=== PATIENT | female | born 1985 | race Caucasian/White ===

== ENCOUNTER 2019-11-04 00:56 | Inpatient (IN) | payer BC ==
[2019-11-04 01:19] LABS: #Basophils 0.1 thou/uL (0.0-0.2); #Eosinphils 0.2 thou/uL (0.0-0.7); #Lymphocytes 2.5 thou/uL (1.20-3.40); #Monocytes 0.7 thou/uL (0.11-0.59); #Neutrophils 9.5 thou/uL (1.40-6.50); %Basophils 0.4 % (0.0-1.0); %Eosinophils 1.2 % (0.0-10.0); %Lymphocytes 19.2 % (21.0-51.0); %Monocytes 5.8 % (0.0-10.0); %Neutrophils 73.4 % (42.0-75.0); Hemoglobin 13.4 g/dL (12.0-16.0); Mean Corpuscular HGB CONC 34.3 g/dL (32.0-36.0); Mean Corpuscular Hemoglobin 34.1 pg (27.0-31.0); Mean Corpuscular Volume 99.4 fL (78.0-98.0); Mean Platelet Volume 8.1 fL (7.4-10.4); Platelet Count 203 thou/uL (130-400); RBC Distribution Width 11.2 % (11.5-14.5); Red Blood Cell (RBC) Count 3.92 mill/uL (4.20-5.40); White Blood Cell (WBC) Count 12.9 thou/uL (4.8-10.8)
[2019-11-04 01:42] LABS: ALT (SGPT) 17 U/L (8-55); AST (SGOT) 23 U/L (5-34); Albumin 4.2 g/dL (3.5-5.0); Alkaline Phosphatase 53 U/L (40-110); Anion Gap 14 mmol/L (10-20); BUN (Urea Nitrogen) 12 mg/dL (7.0-18.7); Bilirubin, Total Less than 0.2 mg/dL (0.2-1.2); Calc. Creatinine Clearance 0 mL/min (70-130); Calcium 9.8 mg/dL (7.8-10.44); Carbon Dioxide 27 mmol/L (22-29); Chloride 105 mmol/L (98-107); Estimated GFR-MDRD 85; Globulin 2.5 g/dL (2.4-3.5); Glucose 102 mg/dL (70-105); Protein, Total 6.7 g/dL (6.0-8.3); Sodium 142 mmol/L (136-145)
[2019-11-04 02:22] LABS: Bilirubin Negative (Negative); Blood, Urine Negative (Negative); Clarity Clear (Clear); Glucose, Urine (Dipstick) Normal (Negative); Leukocyte Negative Leu/uL (Negative); Nitrite Negative (Negative); Protein, Urine (Dipstick) Negative (Neg-Trace); Urobilinogen Normal mg/dL (Less than 2)
[2019-11-04 02:24] LABS: Pregnancy Test - Urine (BHCG) Negative (Negative); Pregu Control Background? CLEAR/WHITE (CLR/WHITE); Pregu Control Bar Appear? YES (CONTROL BAR); Specific Gravity 1.022 (1.002-1.036)
[2019-11-04] MEDS ORDERED: Morphine 4 MG/ML VIAL ONE (03:23)
[2019-11-04] MEDS ORDERED: Ondansetron PF 4 MG/2 ML Vial ONE (03:23)
[2019-11-04 06:14] VITALS: BMI 19.7
[2019-11-04] MEDS ORDERED: FLU VACC QS2019-20(6MOS UP)/PF 60 MCG/0.5 ML SYRINGE IM ONE (06:45)
--- NOTE | 2019-11-04 07:46 | CT ---
PRELIMINARY REPORT/[facility]/EMERGENCY AFTER HOURS PROCEDURE: Receipt of this report by the clinical staff was confirmed with Joselin Brannon MD by Angeline Springer on Nov 04, 2019 04:09:00 CDT. Addendum electronically signed by Ambreen Springer on November 04, 2019 4:09:27 AM CDT History: Abdominal pain, nausea, vomiting and diarrhea. CT abdomen pelvis with 100 cc Isovue-370 IV contrast. Comparison: None. Findings: The lung bases are clear. Elongated right hepatic lobe. The gallbladder, pancreas, spleen, adrenal glands and kidneys are unre markable. The stomach and proximal small bowel are unremarkable. However, the mid small bowel is fluid-filled and mildly dilated. Scattered air fluid levels. Focal fecalization a transition point in the right pelvis within the distal ileum. Mural thickening of the collapsed distal ileum. The appendix is nor mal. The colon is relatively decompressed. Small amount of free fluid in the pelvis. No free air. Retroflexed uterus. Thickening of the endometrial complex. The bladder is collapsed. The aorta is intact. Mild scoliosis. Dominant superior endplate Schmorl's node at L1. No other acute bony findi ngs. Impression: Findings consistent with distal small bowel obstruction transition point in the right pel vis in the distal ileum. Focal inflammatory changes at the transition point suggest focal enteritis as a possible cause of the obstruction. ELECTRONICALLY SIGNED BY: Keshawn Hoff MD Nov 04, 2019 4:04:37 AM CDT This report is intended for review by the ordering physician only, in accordance of law. If you recei ve this report in error, please call [facility] at [phone]. FINAL REPORT EMERGECNY AFTER HOURS CT ABDOMEN AND PELVIS WITH CONTRAST: FINDINGS/IMPRESSION: I agree with the findings and impression given in the preliminary report per [facility] physici an. There is distention of small bowel loops with a transition point in the distal ileum and the midline of the pelvis. There is a small bowel feces sign. This may be secondary to a complete or partial smal l bowel obstruction.
[2019-11-04] MEDS ORDERED: Morphine 2 MG/ML SYRINGE SLOW IVP PRN (08:27)
[2019-11-04] MEDS ORDERED: Morphine 2 MG/ML SYRINGE SLOW IVP SCH (08:30)
[2019-11-04] MEDS ORDERED: Ondansetron ODT 4 MG TAB PO PRN (09:00)
[2019-11-04] MEDS ORDERED: Acetaminophen 650 MG Suppository PR PRN (09:00)
[2019-11-04] MEDS ORDERED: Acetaminophen 325 MG TAB PO PRN (09:00)
[2019-11-04] MEDS ORDERED: Calcium Carbonate 500 MG ChewTAB PO PRN (09:01)
[2019-11-04] MEDS ORDERED: Cepastat Lozenges 1 LOZ PO PRN (09:01)
[2019-11-04] MEDS ORDERED: Mag-Al 1200 mg/1200 mg/30 ML UDCUP PO PRN (09:01)
--- NOTE | 2019-11-04 09:44 | HP ---
PRIMARY CARE PHYSICIAN: Dr. Marilee Rodriguez. CHIEF COMPLAINT: Abdominal pain with nausea and vomiting of one day duration. HISTORY OF PRESENT ILLNESS: The patient is a 34-year-old female with no previous abdominal surgeries, presented to the emergency room with above complaints. The abdominal pain started over the last 24 hours. It got worse around 8 p.m. She had nausea and vomiting along with one episode of loose bowel movement. She did not have any more bowel movement since then. She vomited several time. The vomitus was yellowish, nonbilious. The abdominal pain was mainly localized in the right lower quadrant and the periumbilical area. It was constant with waxing and waning. She denies any aggravating or relieving factor. Sometimes, the pain got worse with walking. She denies any other family member with similar symptoms. She ate [employer] as well as some leftover food yesterday afternoon. She tried some Flexeril at home without much relief. No fever, chills, chest pain, palpitations, dysuria, hematuria, urgency, or vaginal discharge reported. In the emergency room, initial vital signs showed temperature 98.4, pulse of 81, respirations 17, with blood pressure of 148/77. She received Zofran and morphine with IV fluids in the emergency room. CT scan of the abdomen and pelvis was consistent with distention of the small bowel loops with transition point in the distal ileum and midline of the pelvis. There was small-bowel feces sign. This could be complete or partial small-bowel obstruction. PAST MEDICAL HISTORY: Reviewed with the patient and none. PAST SURGICAL HISTORY: Reviewed with the patient and none. ALLERGIES: CODEINE. CURRENT HOME MEDICATION: control. SOCIAL HISTORY: The patient has a history of tobacco vaping. She denies any other drug abuse. FAMILY HISTORY: Positive for diabetes in her father and heart disease in her mother. REVIEW OF SYSTEMS: All other review of systems was reviewed and was found negative. PHYSICAL EXAMINATION: VITAL SIGNS: As discussed above. GENERAL: A 34-year-old female, in [id number] distress due to abdominal cramping. HEENT: Head, atraumatic and normocephalic. Sclerae anicteric. Moist mucous membranes. No oral lesion. NECK: Supple. No JVD. No carotid bruit. LUNGS: Clear to auscultation bilaterally. No wheezing, rales, or rhonchi. HEART: S1 and S2 present. Regular rate and rhythm. No rubs or gallops. ABDOMEN: Soft. There is tenderness in the right lower quadrant with voluntary guarding. The abdomen was soft. Bowel sounds were somewhat hyperactive. There was no rebound or guarding. No costovertebral angle tenderness. EXTREMITIES: No edema or calf tenderness. NEUROLOGIC: Grossly nonfocal. Moves all 4 extremities. PSYCHIATRIC: Alert, awake, and oriented x3. SKIN: Warm and dry. LYMPH NODES: No palpable lymph nodes in the neck. PERIPHERAL VASCULAR: Radial pulses palpable bilaterally. MUSCULOSKELETAL: No joint swelling or tenderness. LABORATORY FINDINGS: CBC showed WBC 12.9 with hemoglobin 13.4, hematocrit 39, and platelets of 203. Chemistry showed sodium 142, potassium 4, chloride 105, bicarb 27, BUN 12, creatinine 0.7. Lipase was 27. Urinalysis was negative for wbc and bacteria. Urine negative. CT scan of the abdomen and pelvis by my review as discussed above. IMPRESSION: 1. Nausea and vomiting along with abdominal discomfort. Symptoms are probably due to suspected small-bowel obstruction. 2. One episode of loose bowel movement yesterday. Rule out infectious gastroenteritis. 3. Acute pain secondary to #1. 4. Chronic kidney disease, stage 2. 5. Codeine allergy. 6. Leukocytosis. PLAN: The patient will be monitored on the surgical floor. We will continue IV hydration. Pain control with IV morphine. Consult General Surgery, Dr. Walsh. Hold NG tube for now. She did not have any episode of vomiting since last night. We will keep her n.p.o. Vital signs per protocol. Strict input and output. Monitor electrolytes. We will send stool studies. She denies any recent antibiotic use. The patient understands the above plan of care. The patient will require 2 to 3 days for stabilization. Job ID: [id number]
[2019-11-04] MEDS ORDERED: Sodium Chloride 0.9% (PF) 10 ML VIAL FS PRN (09:59)
[2019-11-04] MEDS: Pantoprazole 40 MG VIAL IVP SCH ×2 (10:05→20:06)
[2019-11-04] MEDS: D5 1/2 NS w/20 mEq KCL 1,000 ML IV SCH ×3 (10:05→20:06)
[2019-11-04] MEDS ORDERED: Iopamidol 370 76% 100 ML VIAL ONE (14:38)
[2019-11-04] MEDS ORDERED: MD-Gastroview 120 ML BOT ONE (14:54)
[2019-11-04] MEDS: Ondansetron PF 4 MG/2 ML Vial IVP PRN (16:37)
--- NOTE | 2019-11-04 17:10 | CON ---
DATE OF CONSULTATION: 11/04/2019 CHIEF COMPLAINT: Abdominal pain, nausea, and vomiting. HISTORY OF PRESENT ILLNESS: Ms. Gomez is a 34-year-old woman, who has had intermittent episodes of lower abdominal pain since over the last 14 years. These pain episodes occurred for a couple of days per year. She also has episodes of diarrhea few days per week, only 1 or 2 episodes per day. Yesterday evening around 8 p.m., she developed more acute onset lower abdominal stabbing pain that then became more of a tightness and radiated toward her right lower quadrant from her periumbilical area. The pain lasted for several hours, which is longer than it usually lasts. Usually, she can take Flexeril and her pain improves, but this did not help last night. She went on the emergency room, and on the way, started vomiting. She had multiple episodes of vomiting in the emergency room as well. She has had no blood with the stool. No bloody emesis. She had a CT scan performed in the emergency room, which showed an area of fecalization and inflammation in the distal ileum. There was dilation of the bowel proximal to that. She states that she has gained 20 pounds over the last year. PAST MEDICAL HISTORY: Arnold-Chiari malformation. PAST SURGICAL HISTORY: Negative. FAMILY HISTORY: Negative for GI malignancy or inflammatory bowel disease. SOCIAL HISTORY: She previously smoked a pack every couple of days. She changed to vaping a couple of years ago. No alcohol. No drugs. ALLERGIES: CODEINE. MEDICATIONS: Prior to admission, control. She takes ibuprofen 600 mg maybe once per week to once every couple of weeks for headaches. REVIEW OF SYSTEMS: Negative x10 systems reviewed except as stated in history of present illness. PHYSICAL EXAMINATION: VITAL SIGNS: Temperature 98.1, pulse 70, blood pressure 112/69. GENERAL: She is in no acute distress, alert and oriented x3. HEENT: Eyes, no scleral icterus. Oropharynx is clear without lesions. No cervical or supraclavicular lymphadenopathy. LUNGS: Clear to auscultation bilaterally. HEART: Regular rate and rhythm without murmur. ABDOMEN: Soft, nontender, nondistended. Bowel sounds are present. EXTREMITIES: No lower extremity edema. Cranial nerves are grossly intact. LABORATORY DATA: Creatinine 0.77, bilirubin 0.2, AST 23, ALT 17, alkaline phosphatase 53, albumin 4.2, lipase 27. White blood cell count 12.9, hemoglobin 13.4, platelets 203. IMPRESSION: 1. Partial small bowel obstruction, appears to be resolving clinically. She is passing gas from her rectum down. Her abdomen is less distended. She is having no further vomiting. 2. Abnormal CT scan of the abdomen showing thickening of the terminal ileum. She does have diarrhea couple of times per week at baseline and has had intermittent episodes of lower abdominal pain once or twice per year for the last 14 years, then she delivered her baby. She could have inflammatory bowel disease associated with this. The other possibility could be an acute infectious gastroenteritis or less likely would be an ischemic etiology. She has had no prior abdominal surgeries to indicate adhesions causing obstruction in this area. RECOMMENDATIONS: 1. Small-bowel follow-through this afternoon. If that is clear, then we can give a bowel prep tomorrow and then colonoscopy the next day. 2. Clear liquids after the small-bowel follow-through. If the small-bowel follow-through reveals no transition of the contrast through the bowel, then the NG tube could be placed. Job ID: [id number]
--- NOTE | 2019-11-04 17:57 | RAD ---
GASTROGRAFIN SMALL BOWEL EXAM 11/04/19 INDICATIONS: Partial small bowel obstruction versus ileus. FINDINGS: Abrasive Band Winder view shows scattered stool and gas in the colon. Scattered small bowel gas is seen without dila tation. Patient was given gastrografin orally. 30 minute and 45 minute films were obtained. Small bowel opacifies and reaches the colon within 30 minutes. There was no dilatation. No evidence o f small bowel obstruction. IMPRESSION: Unremarkable gastrografin small bowel exam. POS: KEV
[2019-11-04] MEDS ORDERED: GoLYTELY 4,000 ml Bottle PO SCH (18:15)
--- NOTE | 2019-11-04 18:26 | CON ---
DATE OF CONSULTATION: 11/04/2019 CHIEF COMPLAINT: Nausea, vomiting, and diarrhea. HISTORY OF PRESENT ILLNESS: This is a 34-year-old female, who presents with a history of chronic intermittent lower abdominal pain, never as severe as last night. Last night, she had sharp pain in the right lower quadrant. This was associated with severe nausea and bloating. She vomited a few times. She had been having diarrhea for a few days. Denies history of inflammatory bowel disease or Crohn disease. Denies history of a bloody diarrhea. She is feeling better today and has not vomited since admission. PAST MEDICAL HISTORY: She denies. PAST SURGICAL HISTORY: She denies. MEDICATIONS: Medicines taken daily none. ALLERGIES: HYDROCODONE. SOCIAL HISTORY: No smoking, alcohol, or other drugs. REVIEW OF SYSTEMS: Ten-system review of systems is otherwise negative unless described above. PHYSICAL EXAMINATION: HEENT: Sclerae are anicteric. Oropharynx clear. NECK: No lymphadenopathy. CHEST: Clear. HEART: Regular rate. ABDOMEN: Soft, mildly tender diffusely, more in the right lower quadrant without guarding or rebound. EXTREMITIES: No ischemia or edema to extremities. LABORATORY DATA: CT scan as above. ASSESSMENT: Enteritis associated with ileus versus small bowel obstruction of uncertain etiology. PLAN: I recommend a GI consult as well. This could represent a chronic enteritis or inflammatory bowel disease picture. We will defer to them for that. I doubt she is going to need surgical intervention and she already feels better from an obstruction standpoint. We will follow with you. Job ID: [id number]
[2019-11-04 18:48] LABS: HBSAg Index 0.18 S/CO (0-0.99); HIV (1/2) Antibody/Antigen Non-Reactive (NonReactive); HIV 1/2 INDEX 0.17 S/CO (<1.00); Hep B Surf Ag Non-Reactive S/CO (NonReactive); Hep C IgG Ab Non-Reactive (NonReactive); Hep C Index 0.07 S/CO (0-0.79)
[2019-11-04 19:05] LABS: HBSAB Concentration 48.62 mIU/mL; Hep B Surf AB Reactive (NonReactive)
[2019-11-05] MEDS: Ondansetron PF 4 MG/2 ML Vial IVP PRN (00:03)
[2019-11-05 05:38] LABS: #Lymphocytes 1.3 thou/uL (1.20-3.40); #Monocytes 0.5 thou/uL (0.11-0.59); #Neutrophils 2.5 thou/uL (1.40-6.50); %Basophils 0.2 % (0.0-1.0); %Eosinophils 0.9 % (0.0-10.0); %Lymphocytes 30.8 % (21.0-51.0); %Monocytes 11.9 % (0.0-10.0); %Neutrophils 56.3 % (42.0-75.0); Mean Corpuscular HGB CONC 35.1 g/dL (32.0-36.0); Mean Corpuscular Hemoglobin 34.7 pg (27.0-31.0); Mean Corpuscular Volume 98.9 fL (78.0-98.0); Platelet Count 134 thou/uL (130-400); Red Blood Cell (RBC) Count 3.17 mill/uL (4.20-5.40); White Blood Cell (WBC) Count 4.4 thou/uL (4.8-10.8)
[2019-11-05 06:12] LABS: ALT (SGPT) 16 U/L (8-55); AST (SGOT) 20 U/L (5-34); Albumin 3.5 g/dL (3.5-5.0); Alkaline Phosphatase 43 U/L (40-110); Anion Gap 10 mmol/L (10-20); BUN (Urea Nitrogen) Less than 4 mg/dL (7.0-18.7); Bilirubin, Total 0.4 mg/dL (0.2-1.2); Calc. Creatinine Clearance 86 mL/min (70-130); Calcium 8.1 mg/dL (7.8-10.44); Carbon Dioxide 25 mmol/L (22-29); Chloride 107 mmol/L (98-107); Estimated GFR-MDRD Greater than 90; Globulin 2.1 g/dL (2.4-3.5); Glucose 127 mg/dL (70-105); Magnesium 1.6 mg/dL (1.6-2.6); Phosphorus 1.4 mg/dL (2.3-4.7); Protein, Total 5.6 g/dL (6.0-8.3); Sodium 139 mmol/L (136-145)
[2019-11-05] MEDS ORDERED: Potassium Phosphate 15 MMOL in Sodium Chloride 0.9% 250 ML 250 ML IVPB SCH (06:30)
[2019-11-05] MEDS: D5 1/2 NS w/20 mEq KCL 1,000 ML IV SCH (10:18)
[2019-11-05] MEDS: Pantoprazole 40 MG VIAL IVP SCH (10:18)
[2019-11-05] MEDS ORDERED: PROPOFOL 200 MG/20 ML VIAL ONE (11:08)
[2019-11-05] MEDS: K-Phos Neutral 250 MG TAB PO SCH ×2 (11:10→17:00)
--- NOTE | 2019-11-05 15:15 | OP ---
DATE OF PROCEDURE: 11/05/2019 PREPROCEDURE DIAGNOSES: 1. Recent partial bowel obstruction, resolved. There is fecalization in terminal ileum, resolved. 2. Chronic abdominal pain for the last several years, intermittent diarrhea. PROCEDURE PERFORMED: Colonoscopy, diagnostic. POSTPROCEDURE DIAGNOSES: 1. Normal colonoscopy. 2. Normal ileum to about __ cm. ANESTHESIA: TIVA. RECOMMENDATIONS: 1. Consider evaluation for celiac in light of the patient's chronic GI problems. We will obtain celiac panel. 2. Advance diet slowly. 3. We will discuss with Dr. Giraldo and if warrants, we will obtain a MR enterography. PROCEDURE IN DETAIL: After the patient was informed of the risks, benefits, and possible complications of endoscopy including perforation, bleeding, reaction to medication, and aspiration, informed consent was obtained. The patient was brought to endoscopy suite, where she was sedated in gradual fashion. Once she was comfortable, rectal exam was performed. The perianal tissues were normal. The rectum was normal in forward and retroflexed views. The scope was advanced through the colon to the cecum, which was entirely normal. The ileocecal valve was normal. The terminal ileum was entered first for distance about __ cm and was normal. The scope was removed. The patient tolerated the procedure well. There were no complications. Job ID: [id number]
[2019-11-05 17:01] VITALS: BP 123/81; TEMP 98.9
--- NOTE | 2019-11-05 19:05 | DIS ---
DATE OF ADMISSION: 11/04/2019 DATE OF DISCHARGE: 11/05/2019 DISCHARGE DISPOSITION: Home. FOLLOWUP: 1. Follow up with primary care physician, Marilee Rodriguez in 1 week. 2. Follow up with Gastroenterology, Dr. Giraldo next week. Low-fiber diet was recommended. ALLERGIES: THE PATIENT IS ALLERGIC TO HYDROCODONE. DISCHARGE MEDICATIONS: None. The patient was seen and examined on the day of discharge. Denies any new complaints. No nausea, vomiting, or abdominal discomfort. INPATIENT CONSULTANTS: 1. Gastroenterology, Dr. Giraldo. 2. General Surgery, Dr. Walsh. BRIEF HOSPITAL COURSE: The patient is a 34-year-old female, who presented to the hospital with abdominal discomfort along with nausea and vomiting of one day duration. She had several episodes of vomiting which was yellowish and nonbilious. The pain was mainly localized in the right lower quadrant and periumbilical area. Her CT scan of the abdomen and pelvis in the emergency room showed partial or complete small bowel obstruction. The patient was kept n.p.o. and was started on IV fluids and pain medications. She was evaluated by General Surgery as well as GI. She underwent Gastrografin small-bowel follow-through that showed resolution of the small bowel obstruction. A colonoscopy was performed that was normal. Workup for celiac disease has been sent and pending at this time. She has been cleared by consultants for discharge. FINAL DIAGNOSES: 1. Partial small-bowel obstruction, resolved. 2. Nausea and vomiting with abdominal discomfort secondary to #1. 3. Chronic kidney disease, stage 2. 4. Leukocytosis. 5. Codeine allergy. 6. Chronic abdominal pain for last several years with intermittent diarrhea. The patient understands the above plan of care. Job ID: [id number]
[2019-11-06 13:09] LABS: EliA Celiac New Method **** NEW METHOD ****; t-Transglutaminase (tTG) IgA 0.2 EliAU/mL (<7 Negative)
--- NOTE | 2019-11-07 11:56 | PQF ---
SUSAN GENAO BRITTNY LATASHA HANEY MD [id number] [facility] [id number] CLINICAL DOCUMENTATION CLARIFICATION FORM: POST DISCHARGE Addendum to original discharge summary date: ____ Late entry note date: __ Date:11/07/2019 ATTN: LATASHA HANEY MD Please exercise your independent, professional judgment in responding to the clarification form. Clinical indicators are provided on the bottom of this form for your review Please check appropriate box(s): [ ] Protein Calorie Malnutrition: [ ] Mild [x] Moderate [ ] Severe [ ] Other Malnutrition (please specify) __ [ ] Underweight without malnutrition [ ] Cachexia [ ] Other diagnosis [ ] Unable to determine In addition, please specify: Present on Admission (POA): [ x ] Yes [ ] No [ ] Unable to determine CLINICAL INDICATORS - SIGNS / SYMPTOMS / LABS BMI-19.7-Documented in [facility] Assessment Partial small bowel obstruction resolved -Documented in discharge summary on by Latasha Haney Nausea and vomiting -Documented in discharge summary on 11/04 by Latasha Haney Enteritis-Documented in ED on 11/03 by Clovis Olivera [employer] Partial small bowel obstruction resolved -Documented in discharge summary on by Latasha Haney Nausea and vomiting -Documented in discharge summary on 11/04 by Latasha Haney TREATMENT: Follow up with gastroenterology , Dr Newby nest week, Low fiber diet was recommended-Documented in discharge summary on 11/04 by Latasha Haney Clear liquids after the small bowel [id number] in consultation on 11/03 by Tl Newby MD Moderate Malnutrition (in acute illness) Energy Intake: <75% of estimated energy requirement for > 7 days Weight Loss: 1-2%/1 week; 5%/ 1 month; 7.5%/3 months Other: mild body fat loss; mild muscle mass loss; mild fluid accumulation; Severe Malnutrition (in acute illness) Energy Intake: < 50% of estimated energy requirement for > 5 days Weight Loss: >1-2%/1 week; >5%/1 month; >7.5%/3 months Other: moderate body fat loss; moderate muscle mass loss; moderate- severe fluid accumulation; measurably reduced group counselor strength Moderate Malnutrition (in chronic illness) Energy Intake: <75% of estimated energy requirement for >1 month Weight Loss: 5%/1 month; 7.5%/3 months; 10%/6 months; 20%/1 year Other: mild body fat loss; mild muscle mass loss; mild fluid accumulation Severe Malnutrition (in chronic illness) Energy Intake: <75% of estimated energy requirement for >1 month Weight Loss: >5%/1 month; >7.5%/3 months; >10%/6 months; >20%/1 year Other: severe body fat loss; severe muscle mass loss; severe fluid accumulation ; measurably reduced group counselor strength [employer] Senior Technical Trainer [employer] (This form is maintained as a part of the permanent medical record) 2014 [employer]. All Rights Reserved [email or web address] [phone] [email or web address]
== END 2019-11-05 17:55 | disposition home or self-care (01) | DRG 389 ==
LOC: ERS 00:56 → SURG A 04:41
PROVIDERS: ADMIT Internal Medicine; ATTEND Internal Medicine
PROC: 0DJD8ZZ Inspection of Lower Intestinal Tract, Via Natural or Artificial Opening Endoscopic (ICD-10-PCS; principal; 2019-11-05)
DX: K56.600 Partial intestinal obstruction, unspecified as to cause (principal); E44.0 Moderate protein-calorie malnutrition; Z68.1 Body mass index [BMI] 19.9 or less, adult; Z88.5 Allergy status to narcotic agent; N18.2 Chronic kidney disease, stage 2 (mild); K52.9 Noninfective gastroenteritis and colitis, unspecified; Z83.3 Family history of diabetes mellitus; Z82.49 Family history of ischemic heart disease and other diseases of the circulatory system; Q07.00 Arnold-Chiari syndrome without spina bifida or hydrocephalus; Z87.891 Personal history of nicotine dependence
CPT/HCPCS: 36415; 74177; 74250; 80053; 81003; 81025; 83516; 83690; 83735; 84100; 84443; 85025; 86140; 86706; 86708; 86803; 87340; 87389; 90471; 90686; 96361; 96374; 96375; C9113; G0008; J2270; J2405; J2704; J7050; Q0162; Q9963; Q9967